=== PATIENT | female | born 1960 | race Caucasian/White ===

== ENCOUNTER 2017-03-25 08:22 | Day surgery (SDC) | payer OTHER ==
[2017-03-24 11:26] VITALS: BMI 28.7
[2017-03-25] MEDS ORDERED: PROPOFOL 20 ML ONE ×2 (08:29)
[2017-03-25 12:06] VITALS: TEMP 97.9
[2017-03-25 12:11] VITALS: BP 112/50; PULSE 60
--- NOTE | 2017-03-26 13:32 | PATH ---
Surgical Pathology Report Patient Name: MARIAN DARDEN [facility]. Rec. #: [id number] /Age/Gender: 1960 (Age: 56) / F Account: [id number] Location: [facility] MED-SURG Taken: 03/25/2017 Received: 03/25/2017 Reported: 03/26/2017 Physicians: Adan Ventura M.D. Specimen(s) Received POLYP RIGHT COLON Clinical History History of polyps Polyp Final Diagnosis COLON, RIGHT, BIOPSY: POLYP WITH SERRATED ARCHITECTURE AND FEATURES SUGGESTIVE OF SESSILE SERRATED POLYP. Comment: Sessile serrated polyps are not dysplastic (adenomatous). They share morphologic features with hyperplastic polyps and, in the past, have been referred to as such. However, recent studies indicate that they harbor BRAF mutations and may represent neoplastic precursors to a subset of sporadic, microsatellite unstable colon cancers. They are generally treated and followed similar to colonic adenomas. JENNY Francois and Milena, [facility] 2010, 139(5):8382-9018. Electronically Signed Kodak Welch M.D. Gross Description Received in formalin, labeled "polyp right colon" are 2 dumont, irregular portions of soft tissue averaging 0.3 cm. in greatest dimension. The specimens are submitted in toto in one cassette. 03/25/2017 saudi03/25/2017
== END 2017-03-25 10:20 | disposition home or self-care (01) ==
LOC: FASU-ENDO 08:22
PROVIDERS: ATTEND Internal Medicine Gastroenterology
PROC: 0DBK8ZX Excision of Ascending Colon, Via Natural or Artificial Opening Endoscopic, Diagnostic (ICD-10-PCS; principal; 2017-03-25 09:00)
DX: Z86.010 Personal history of colon polyps (principal); D12.2 Benign neoplasm of ascending colon
CPT/HCPCS: 88305-TC

== ENCOUNTER 2022-09-03 16:08 | Emergency (ER) | payer BC ==
[2022-09-03 16:22] VITALS: BP 129/87; PULSE 80; RESP 16; TEMP 98.3; BMI 29.5
== END 2022-09-03 17:22 | disposition home or self-care (01) ==
LOC: FER 16:08
DX: S92.515A Nondisplaced fracture of proximal phalanx of left lesser toe(s), initial encounter for closed fracture (principal); W01.0XXA Fall on same level from slipping, tripping and stumbling without subsequent striking against object, initial encounter
CPT/HCPCS: 73630-TC-LT; 99283-25